=== PATIENT | male | born 1945 | race Caucasian/White ===

== ENCOUNTER 2016-06-30 10:08 | Outpatient (CLI) | payer MEDICARE, OTHER | END 2016-06-30 10:09 | disposition home or self-care (01) | DX: I48.91 Unspecified atrial fibrillation (principal) ==

== ENCOUNTER 2016-10-16 09:17 | Outpatient (CLI) | payer MEDICARE, OTHER ==
[2016-10-16 09:45] LABS: CREATININE 1.4 mg/dL (0.6-1.2); POTASSIUM 4.7 mmol/L (3.5-5.0)
== END 2016-10-16 09:18 | disposition home or self-care (01) ==
LOC: LAB 09:17
PROVIDERS: ATTEND Internal Medicine Cardiovascular Disease
DX: Z51.81 Encounter for therapeutic drug level monitoring (principal); Z79.899 Other long term (current) drug therapy
CPT/HCPCS: 36415; 80048

== ENCOUNTER 2016-12-05 07:29 | Outpatient (CLI) | payer MEDICARE, OTHER ==
[2016-12-05 13:56] LABS: BASOPHILS % (AUTO) 0.6 %; EOSINOPHILS # (AUTO) 0.1 10^3/uL (0.0-0.7); EOSINOPHILS % (AUTO) 2.8 %; HCT - HEMATOCRIT 41.6 % (42.0-52.0); HGB - HEMOGLOBIN 13.9 g/dL (14.0-18.0); LYMPHOCYTES # (AUTO) 1.3 10^3/uL (1.5-3.5); LYMPHOCYTES % (AUTO) 25.8 %; MEAN CORPUSCULAR HEMOGLOBIN 30.7 pg (27.0-31.0); MEAN CORPUSCULAR HGB CONC 33.3 g/dL (32.0-36.0); MEAN CORPUSCULAR VOLUME 91.9 fL (80.0-94.0); MEAN PLATELET VOLUME 8.3 fL (7.4-11.4); MONOCYTES # (AUTO) 0.4 10^3/uL (0.0-1.0); MONOCYTES % (AUTO) 8.4 %; NEUTROPHILS # (AUTO) 3.2 10^3/uL (1.5-6.6); NEUTROPHILS % (AUTO) 62.4 %; NUCLEATED RED BLOOD CELLS AUTO 0.1 /100WBC; RED BLOOD COUNT 4.52 10^6/uL (4.70-6.10); RED CELL DISTRIBUTION WIDTH 13.9 % (12.0-15.0); UNCORRECTED WHITE BLOOD COUNT 5.1 x10^3/uL; WHITE BLOOD COUNT 5.1 x10^3/uL (4.8-10.8)
[2016-12-05 14:30] LABS: ALBUMIN/GLOBULIN RATIO 1.4 (1.0-2.2); BILIRUBIN,TOTAL 0.6 mg/dL (0.2-1.0); BUN - BLOOD UREA NITROGEN 28 mg/dL (6-20); CARBON DIOXIDE - CO2 25 mmol/L (21-32); CHLORIDE 105 mmol/L (101-111); CHOL/HDL RATIO 3.2 (<5.0); CHOLESTEROL 158 mg/dL; CREATININE 1.2 mg/dL (0.6-1.2); GFR - MDRD 60 (>89); GLUCOSE 166 mg/dL (70-100); HDL CHOLESTEROL 50 mg/dL; LDL/HDL RATIO 1.7 (<3.6); POTASSIUM 4.5 mmol/L (3.5-5.0); SODIUM 138 mmol/L (135-145); TOTAL PROTEIN 6.4 g/dL (6.7-8.2); TRIGLYCERIDES 107 mg/dL; VLDL CHOLESTEROL 21 mg/dL
[2016-12-05 19:18] LABS: HEMOGLOBIN A1C 1.3 g/dL
== END 2016-12-05 07:30 | disposition home or self-care (01) ==
LOC: LAB.WCP 07:29
PROVIDERS: ATTEND Family Medicine
DX: I10 Essential (primary) hypertension (principal); E11.9 Type 2 diabetes mellitus without complications; Z12.5 Encounter for screening for malignant neoplasm of prostate
CPT/HCPCS: 36415; 80053; 80061; 82043; 83036; 85025; G0103; 84153

== ENCOUNTER 2016-12-26 14:09 | Outpatient (CLI) | payer MEDICARE, OTHER ==
[2016-12-26 14:50] LABS: CALCIUM 8.8 mg/dL (8.5-10.3); CREATININE 1.6 mg/dL (0.6-1.2); POTASSIUM 4.7 mmol/L (3.5-5.0)
== END 2016-12-26 14:10 | disposition home or self-care (01) ==
LOC: LAB 14:09
PROVIDERS: ATTEND Internal Medicine Cardiovascular Disease
DX: Z51.81 Encounter for therapeutic drug level monitoring (principal); Z79.899 Other long term (current) drug therapy
CPT/HCPCS: 36415; 80048

== ENCOUNTER 2017-04-24 14:38 | Outpatient (CLI) | payer MEDICARE, OTHER ==
[2017-04-24 12:57] LABS: HEMOGLOBIN A1C 1.14 g/dL
[2017-04-24 13:04] LABS: ALBUMIN/GLOBULIN RATIO 1.3 (1.0-2.2); BILIRUBIN,TOTAL 0.7 mg/dL (0.2-1.0); BUN - BLOOD UREA NITROGEN 24 mg/dL (6-20); CALCIUM 8.6 mg/dL (8.5-10.3); CARBON DIOXIDE - CO2 27 mmol/L (21-32); CHLORIDE 106 mmol/L (101-111); CHOL/HDL RATIO 3.4 (<5.0); CHOLESTEROL 168 mg/dL; CREATININE 1.2 mg/dL (0.6-1.2); GFR - MDRD 60 (>89); GLUCOSE 220 mg/dL (70-100); HDL CHOLESTEROL 49 mg/dL; POTASSIUM 4.3 mmol/L (3.5-5.0); SODIUM 136 mmol/L (135-145); TOTAL PROTEIN 6.3 g/dL (6.7-8.2); TRIGLYCERIDES 93 mg/dL; VLDL CHOLESTEROL 19 mg/dL
== END 2017-04-24 14:39 | disposition home or self-care (01) ==
LOC: LAB.WCP 14:38
PROVIDERS: ATTEND Family Medicine
DX: E78.5 Hyperlipidemia, unspecified (principal); E11.9 Type 2 diabetes mellitus without complications
CPT/HCPCS: 36415; 80053; 80061; 83036

== ENCOUNTER 2017-06-25 08:03 | Outpatient (CLI) | payer MEDICARE, OTHER ==
[2017-06-25 08:39] LABS: CALCIUM 9.1 mg/dL (8.5-10.3); CREATININE 1.2 mg/dL (0.6-1.2)
== END 2017-06-25 08:04 | disposition home or self-care (01) ==
LOC: LAB 08:03
PROVIDERS: ATTEND Internal Medicine Cardiovascular Disease
DX: Z51.81 Encounter for therapeutic drug level monitoring (principal); Z79.899 Other long term (current) drug therapy
CPT/HCPCS: 36415; 80048

== ENCOUNTER 2017-08-08 08:00 | Outpatient (CLI) | payer MEDICARE, OTHER ==
[2017-08-08 12:56] LABS: HB2 TOTAL 13.2 g/dL; HEMOGLOBIN A1C 1.02 g/dL; HEMOGLOBIN A1C % 9.2 % (4.6-6.2)
[2017-08-08 12:57] LABS: ALBUMIN 3.8 g/dL (3.2-5.5); ALBUMIN/GLOBULIN RATIO 1.5 (1.0-2.2); ALKALINE PHOSPHATASE 51 IU/L (42-121); ALT ALANINE AMINOTRANSFERASE 16 IU/L (10-60); AST ASPARTATE AMINOTRANSFERASE 15 IU/L (10-42); BILIRUBIN,TOTAL 0.8 mg/dL (0.2-1.0); BUN - BLOOD UREA NITROGEN 24 mg/dL (6-20); CALCIUM 8.7 mg/dL (8.5-10.3); CARBON DIOXIDE - CO2 24 mmol/L (21-32); CHLORIDE 105 mmol/L (101-111); CHOLESTEROL 143 mg/dL; CREATININE 1.2 mg/dL (0.6-1.2); GFR - MDRD 60 (>89); GLUCOSE 250 mg/dL (70-100); HDL CHOLESTEROL 47 mg/dL; LDL CHOLESTEROL,CALCULATED 78 mg/dL; LDL/HDL RATIO 1.7 (<3.6); SODIUM 137 mmol/L (135-145); TOTAL PROTEIN 6.3 g/dL (6.7-8.2); VLDL CHOLESTEROL 18 mg/dL
[2017-08-08 12:59] LABS: BASOPHILS % (AUTO) 0.4 %; EOSINOPHILS # (AUTO) 0.1 10^3/uL (0.0-0.7); EOSINOPHILS % (AUTO) 1.5 %; HGB - HEMOGLOBIN 12.8 g/dL (14.0-18.0); LYMPHOCYTES # (AUTO) 1.2 10^3/uL (1.5-3.5); MEAN CORPUSCULAR HGB CONC 34.2 g/dL (32.0-36.0); MEAN CORPUSCULAR VOLUME 90.6 fL (80.0-94.0); MEAN PLATELET VOLUME 8.6 fL (7.4-11.4); MONOCYTES # (AUTO) 0.5 10^3/uL (0.0-1.0); MONOCYTES % (AUTO) 9.3 %; NEUTROPHILS # (AUTO) 3.8 10^3/uL (1.5-6.6); NEUTROPHILS % (AUTO) 67.8 %; PLT - PLATELET COUNT 143 10^3/uL (130-450); RED BLOOD COUNT 4.14 10^6/uL (4.70-6.10); WHITE BLOOD COUNT 5.6 x10^3/uL (4.8-10.8)
== END 2017-08-08 08:01 | disposition home or self-care (01) ==
LOC: LAB.WCP 08:00
PROVIDERS: ATTEND Family Medicine
DX: I10 Essential (primary) hypertension (principal); E11.9 Type 2 diabetes mellitus without complications; E78.5 Hyperlipidemia, unspecified
CPT/HCPCS: 36415; 80053; 80061; 83036; 83721; 85025

== ENCOUNTER 2017-09-25 09:50 | Outpatient (CLI) | payer MEDICARE, OTHER ==
[2017-09-25 10:48] LABS: CALCIUM 8.9 mg/dL (8.5-10.3); CREATININE 1.2 mg/dL (0.6-1.2)
== END 2017-09-25 09:51 | disposition home or self-care (01) ==
LOC: LAB 09:50
PROVIDERS: ATTEND Internal Medicine Cardiovascular Disease
DX: Z51.81 Encounter for therapeutic drug level monitoring (principal); Z79.899 Other long term (current) drug therapy
CPT/HCPCS: 36415; 80048

== ENCOUNTER 2017-12-20 07:58 | Outpatient (CLI) | payer MEDICARE, OTHER ==
[2017-12-20 12:52] LABS: HB2 TOTAL 13.7 g/dL; HEMOGLOBIN A1C 0.73 g/dL
== END 2017-12-20 07:59 | disposition home or self-care (01) ==
LOC: LAB.WCP 07:58
PROVIDERS: ATTEND Family Medicine
DX: E11.9 Type 2 diabetes mellitus without complications (principal)
CPT/HCPCS: 36415; 83036

== ENCOUNTER 2017-12-25 10:00 | Outpatient (CLI) | payer MEDICARE, OTHER ==
[2017-12-25 10:27] LABS: CALCIUM 9.1 mg/dL (8.5-10.3); CREATININE 1.2 mg/dL (0.6-1.2)
== END 2017-12-25 10:01 | disposition home or self-care (01) ==
LOC: LAB 10:00
PROVIDERS: ATTEND Internal Medicine Cardiovascular Disease
DX: Z51.81 Encounter for therapeutic drug level monitoring (principal); Z79.899 Other long term (current) drug therapy
CPT/HCPCS: 36415; 80048

== ENCOUNTER 2018-03-26 07:03 | Outpatient (CLI) | payer MEDICARE, OTHER ==
[2018-03-26 13:02] LABS: BASOPHILS % (AUTO) 0.4 %; EOSINOPHILS # (AUTO) 0.1 10^3/uL (0.0-0.7); EOSINOPHILS % (AUTO) 1.5 %; HGB - HEMOGLOBIN 12.9 g/dL (14.0-18.0); LYMPHOCYTES # (AUTO) 1.2 10^3/uL (1.5-3.5); LYMPHOCYTES % (AUTO) 27.7 %; MEAN CORPUSCULAR HEMOGLOBIN 31.6 pg (27.0-31.0); MEAN CORPUSCULAR HGB CONC 34.5 g/dL (32.0-36.0); MEAN CORPUSCULAR VOLUME 91.4 fL (80.0-94.0); MEAN PLATELET VOLUME 8.1 fL (7.4-11.4); MONOCYTES # (AUTO) 0.4 10^3/uL (0.0-1.0); MONOCYTES % (AUTO) 9.3 %; NEUTROPHILS # (AUTO) 2.7 10^3/uL (1.5-6.6); NEUTROPHILS % (AUTO) 61.1 %; PLT - PLATELET COUNT 150 10^3/uL (130-450); RED BLOOD COUNT 4.09 10^6/uL (4.70-6.10); RED CELL DISTRIBUTION WIDTH 13.8 % (12.0-15.0); WHITE BLOOD COUNT 4.5 x10^3/uL (4.8-10.8)
[2018-03-26 13:09] LABS: ALBUMIN 3.6 g/dL (3.2-5.5); ALBUMIN/GLOBULIN RATIO 1.4 (1.0-2.2); ALKALINE PHOSPHATASE 60 IU/L (42-121); ALT ALANINE AMINOTRANSFERASE 22 IU/L (10-60); AST ASPARTATE AMINOTRANSFERASE 19 IU/L (10-42); BILIRUBIN,TOTAL 0.9 mg/dL (0.2-1.0); BUN - BLOOD UREA NITROGEN 15 mg/dL (6-20); CALCIUM 8.8 mg/dL (8.5-10.3); CARBON DIOXIDE - CO2 27 mmol/L (21-32); CHLORIDE 104 mmol/L (101-111); CHOL/HDL RATIO 2.7 (<5.0); CHOLESTEROL 130 mg/dL; GFR - MDRD 73 (>89); GLUCOSE 217 mg/dL (70-100); HDL CHOLESTEROL 48 mg/dL; LDL CHOLESTEROL,CALCULATED 57 mg/dL; LDL/HDL RATIO 1.2 (<3.6); SODIUM 139 mmol/L (135-145); TOTAL PROTEIN 6.2 g/dL (6.7-8.2); VLDL CHOLESTEROL 25 mg/dL
[2018-03-26 13:32] LABS: HB2 TOTAL 13.4 g/dL; HEMOGLOBIN A1C 1.07 g/dL; HEMOGLOBIN A1C % 9.5 % (4.6-6.2)
== END 2018-03-26 07:04 | disposition home or self-care (01) ==
LOC: LAB.WCP 07:03
PROVIDERS: ATTEND Family Medicine
DX: E11.9 Type 2 diabetes mellitus without complications (principal); Z12.5 Encounter for screening for malignant neoplasm of prostate; E78.5 Hyperlipidemia, unspecified; D64.9 Anemia, unspecified
CPT/HCPCS: 36415; 80053; 80061; 83036; 85025; G0103; 83721; 84153

== ENCOUNTER 2018-04-01 09:05 | Outpatient (CLI) | payer MEDICARE, OTHER ==
[2018-04-01 09:42] LABS: CALCIUM 8.8 mg/dL (8.5-10.3); CREATININE 1.1 mg/dL (0.6-1.2)
== END 2018-04-01 09:06 | disposition home or self-care (01) ==
LOC: LAB 09:05
PROVIDERS: ATTEND Internal Medicine Cardiovascular Disease
DX: Z51.81 Encounter for therapeutic drug level monitoring (principal); Z79.899 Other long term (current) drug therapy
CPT/HCPCS: 36415; 80048

== ENCOUNTER 2018-06-01 11:27 | Emergency (ER) | payer MEDICARE, OTHER ==
[2018-06-01 11:33] VITALS: BP 115/81
[2018-06-01] MEDS ORDERED: BENZONATATE 100 MG CAPSULE PO STA (12:10)
--- NOTE | 2018-06-01 12:12 | ED Physician Documentation ---
PD HPI URI - Stated complaint Stated Complaint: CONGESTION - Chief complaint Chief Complaint: Resp - History obtained from History obtained from: Patient, Family () - History of Present Illness Timing - onset: Yesterday (72-year-old gentleman with history of paroxysmal atrial fibrillation on Eliquis had a URI which was getting better and then got worse over the last day or 2 with nonproductive cough and feeling like there is junk in his chest. He denies fevers or shortness of breath.) Review of Systems Constitutional: reports: Fatigue. denies: Fever, Chills Throat: reports: Sore throat Cardiac: denies: Chest pain / pressure, Palpitations Respiratory: reports: Cough. denies: Dyspnea PD PAST MEDICAL HISTORY - Past Medical History Cardiovascular: Hypertension, High cholesterol, Atrial fibrillation Respiratory: None Endocrine/Autoimmune: Type 2 diabetes GI: GERD, Colon polyps :  HEENT: Chronic vision loss Psych: None Musculoskeletal: None Derm: Eczema - Past Surgical History Past Surgical History: Yes General: Colonoscopy Ortho: Other - Present Medications Home Medications: Ambulatory Orders Medication Instructions Recorded Confirmed Carvedilol [Coreg] 6.25 mg PO BID 11/04/12 02/04/15 Dofetilide [Tikosyn] 500 mcg PO BID 11/04/12 02/04/15 Glipizide [Glucotrol Xl] 10 mg PO BID 11/04/12 02/04/15 Lisinopril 40 mg PO DAILY 11/04/12 02/04/15 Metformin HCl [Glumetza] 1,000 mg PO BID 11/04/12 02/04/15 Pantoprazole Sodium [Protonix] 40 mg PO QDAC 11/04/12 02/04/15 amLODIPine [Norvasc] 10 mg PO DAILY 01/15/13 02/04/15 Lovastatin 40 mg PO DAILY 01/07/14 02/04/15 Potassium Chloride 20 meq PO DAILY 01/07/14 02/04/15 Aspirin [Aspir 81] 81 mg PO DAILY 03/13/14 02/04/15 Benzonatate [Tessalon Perle] 100 - 200 mg PO TID PRN #30 capsule 02/04/15 Doxycycline Hyclate [Vibramycin] 100 mg PO BID 10 Days capsule 02/04/15 Apixaban [Eliquis] 5 mg PO BID #60 tablet 04/12/16 Carvedilol [Coreg] 12.5 mg PO BID #60 tablet 04/12/16 Benzonatate [Tessalon Perle] 100 - 200 mg PO TID PRN #30 capsule 06/01/18 Doxycycline Hyclate 100 mg PO BID #20 capsule 06/01/18 - Allergies Allergies/Adverse Reactions: Allergies Allergy/AdvReac Type Severity Reaction Status Date / Time No Known Drug Allergies Allergy Verified 06/01/18 11:33 - Social History Does the pt smoke?: No Smoking Status: Never smoker Does the pt drink ETOH?: No Does the pt have substance abuse?: No - Immunizations Immunizations are current?: No - POLST Patient has POLST: No PD ED PE NORMAL - Vitals Vital signs reviewed: Yes - General General: Alert and oriented X 3, No acute distress (but frequent wet cough) - HEENT HEENT: Ears normal, Pharynx benign - Neck Neck: Supple, no meningeal sign, No bony TTP - Cardiac Cardiac: RRR, No murmur - Respiratory Respiratory: No respiratory distress, Other (diminished L base) - Abdomen Abdomen: Non tender - Extremities Extremities: No edema, No calf tenderness / cord - Neuro Neuro: Alert and oriented X 3, Normal speech Results - Vitals Vitals: Vital Signs - 24 hr 06/01/18 11:29 Temperature 36 C L Heart Rate 118 H Respiratory 18 Rate Blood Pressure 115/81 H O2 Saturation 97 Oxygen O2 Source Room air - Labs Labs: Laboratory Tests 06/01/18 06/01/18 12:18 12:18 WBC 4.6 L RBC 4.46 L Hgb 13.7 L Hct 41.1 L MCV 92.1 MCH 30.6 MCHC 33.2 RDW 13.6 Plt Count 177 MPV 7.9 Neut # (Auto) 3.0 Lymph # (Auto) 1.0 L [place] # (Auto) 0.5 Eos # (Auto) 0.1 Baso # (Auto) 0.0 Absolute Nucleated RBC 0.00 Nucleated RBC % 0.0 Sodium 137 Potassium 4.5 Chloride 102 Carbon Dioxide 24 Anion Gap 11.0 BUN 22 H Creatinine 1.3 H Estimated GFR (MDRD) 54 L Glucose 356 H Calcium 8.8 Total Bilirubin 0.5 AST 20 ALT 20 Alkaline Phosphatase 115 Total Protein 6.8 Albumin 3.6 Globulin 3.2 Albumin/Globulin Ratio 1.1 Lipase 42 PD MEDICAL DECISION MAKING - ED course ED course: 72-year-old gentleman presents with "double sickening" and clinical pneumonia at the left base without concomitant significant radiographic findings. Departure - Departure Disposition: 01 Home, Self Care Clinical Impression: Pneumonia Condition: Good Record reviewed to determine appropriate education?: Yes Instructions: Pneumonia Dc Prescriptions: Benzonatate [Tessalon Perle] 100 - 200 mg PO TID PRN #30 capsule PRN Reason: Cough Doxycycline Hyclate 100 mg PO BID #20 capsule Comments: Plenty of fluids. Return if worsening. Follow-up with your physician in 3-5 days for recheck.
[2018-06-01 12:24] LABS: BASOPHILS % (AUTO) 0.4 %; EOSINOPHILS # (AUTO) 0.1 10^3/uL (0.0-0.7); EOSINOPHILS % (AUTO) 2.6 %; HGB - HEMOGLOBIN 13.7 g/dL (14.0-18.0); MEAN CORPUSCULAR HEMOGLOBIN 30.6 pg (27.0-31.0); MEAN CORPUSCULAR HGB CONC 33.2 g/dL (32.0-36.0); MEAN CORPUSCULAR VOLUME 92.1 fL (80.0-94.0); MEAN PLATELET VOLUME 7.9 fL (7.4-11.4); MONOCYTES # (AUTO) 0.5 10^3/uL (0.0-1.0); MONOCYTES % (AUTO) 11.2 %; NEUTROPHILS % (AUTO) 64.8 %; PLT - PLATELET COUNT 177 10^3/uL (130-450); RED BLOOD COUNT 4.46 10^6/uL (4.70-6.10); RED CELL DISTRIBUTION WIDTH 13.6 % (12.0-15.0); WHITE BLOOD COUNT 4.6 x10^3/uL (4.8-10.8)
[2018-06-01 12:35] LABS: ALBUMIN 3.6 g/dL (3.2-5.5); ALBUMIN/GLOBULIN RATIO 1.1 (1.0-2.2); BILIRUBIN,TOTAL 0.5 mg/dL (0.2-1.0); CALCIUM 8.8 mg/dL (8.5-10.3); CREATININE 1.3 mg/dL (0.6-1.2); TOTAL PROTEIN 6.8 g/dL (6.7-8.2)
--- NOTE | 2018-06-01 13:26 | XRAY Report ---
Reason: cough, diminished breathL base Procedure Date: 06/01/2018 Accession Number: [id number] / [id number] Procedure: XR - Chest 2 View X-Ray CPT Code: 49896 FULL RESULT: EXAM: CHEST RADIOGRAPHY EXAM DATE: 06/01/2018 12:50 PM. CLINICAL HISTORY: Cough, diminished breath L base. COMPARISON: Chest radiograph 02/04/2015. Chest CT 02/11/2015. TECHNIQUE: 2 views. FINDINGS: Lungs/Pleura: No focal opacities evident. No pleural effusion. No pneumothorax. Normal volumes. Mediastinum: Heart and mediastinal contours are unremarkable. Other: Mild degenerative changes within the spine. Mild rightward curvature of the thoracic spine. IMPRESSION: No acute cardiopulmonary abnormality. RADIA
== END 2018-06-01 13:03 | disposition home or self-care (01) ==
LOC: ED 11:27
DX: J18.9 Pneumonia, unspecified organism (principal); I10 Essential (primary) hypertension; E78.00 Pure hypercholesterolemia, unspecified; E11.9 Type 2 diabetes mellitus without complications; I48.91 Unspecified atrial fibrillation; Z79.01 Long term (current) use of anticoagulants; Z79.82 Long term (current) use of aspirin
CPT/HCPCS: 36415; 71046; 80053; 83690; 85025; 99283; A9270

== ENCOUNTER 2018-07-01 14:48 | Outpatient (CLI) | payer MEDICARE, OTHER ==
[2018-07-01 17:43] LABS: CALCIUM 9.2 mg/dL (8.5-10.3); CREATININE 1.2 mg/dL (0.6-1.2)
== END 2018-07-01 14:49 | disposition home or self-care (01) ==
LOC: LAB 14:48
PROVIDERS: ATTEND Internal Medicine Cardiovascular Disease
DX: Z51.81 Encounter for therapeutic drug level monitoring (principal); Z79.899 Other long term (current) drug therapy
CPT/HCPCS: 36415; 80048

== ENCOUNTER 2018-08-14 08:27 | Outpatient (CLI) | payer MEDICARE, OTHER ==
[2018-08-14 13:29] LABS: BASOPHILS % (AUTO) 0.7 %; EOSINOPHILS # (AUTO) 0.1 10^3/uL (0.0-0.7); EOSINOPHILS % (AUTO) 1.6 %; HGB - HEMOGLOBIN 12.6 g/dL (14.0-18.0); LYMPHOCYTES # (AUTO) 1.1 10^3/uL (1.5-3.5); LYMPHOCYTES % (AUTO) 23.6 %; MEAN CORPUSCULAR HEMOGLOBIN 30.3 pg (27.0-31.0); MEAN CORPUSCULAR HGB CONC 33.6 g/dL (32.0-36.0); MEAN CORPUSCULAR VOLUME 90.3 fL (80.0-94.0); MEAN PLATELET VOLUME 8.3 fL (7.4-11.4); MONOCYTES # (AUTO) 0.5 10^3/uL (0.0-1.0); MONOCYTES % (AUTO) 10.2 %; NEUTROPHILS # (AUTO) 3.1 10^3/uL (1.5-6.6); NEUTROPHILS % (AUTO) 63.9 %; PLT - PLATELET COUNT 154 10^3/uL (130-450); RED BLOOD COUNT 4.14 10^6/uL (4.70-6.10); RED CELL DISTRIBUTION WIDTH 14.1 % (12.0-15.0); WHITE BLOOD COUNT 4.8 x10^3/uL (4.8-10.8)
[2018-08-14 13:45] LABS: HB2 TOTAL 13.4 g/dL
[2018-08-14 13:46] LABS: ALBUMIN 3.6 g/dL (3.2-5.5); ALBUMIN/GLOBULIN RATIO 1.3 (1.0-2.2); ALKALINE PHOSPHATASE 73 IU/L (42-121); ALT ALANINE AMINOTRANSFERASE 18 IU/L (10-60); AST ASPARTATE AMINOTRANSFERASE 18 IU/L (10-42); BUN - BLOOD UREA NITROGEN 19 mg/dL (6-20); CALCIUM 8.8 mg/dL (8.5-10.3); CARBON DIOXIDE - CO2 27 mmol/L (21-32); CHLORIDE 107 mmol/L (101-111); CHOL/HDL RATIO 2.9 (<5.0); CHOLESTEROL 141 mg/dL; CREATININE 1.1 mg/dL (0.6-1.2); GFR - MDRD 66 (>89); GLUCOSE 178 mg/dL (70-100); HDL CHOLESTEROL 48 mg/dL; LDL CHOLESTEROL,CALCULATED 80 mg/dL; LDL/HDL RATIO 1.7 (<3.6); SODIUM 141 mmol/L (135-145); TOTAL PROTEIN 6.3 g/dL (6.7-8.2); VLDL CHOLESTEROL 13 mg/dL
== END 2018-08-14 23:59 | disposition home or self-care (01) ==
LOC: LAB.WCP 08:27
PROVIDERS: ATTEND Family Medicine
DX: I10 Essential (primary) hypertension (principal); E78.5 Hyperlipidemia, unspecified; E11.9 Type 2 diabetes mellitus without complications
CPT/HCPCS: 36415; 80053; 80061; 82043; 83036; 83721; 85025

== ENCOUNTER 2018-10-11 08:44 | Outpatient (CLI) | payer MEDICARE, OTHER ==
[2018-10-11 09:11] LABS: CALCIUM 8.9 mg/dL (8.5-10.3); CREATININE 1.2 mg/dL (0.6-1.2)
== END 2018-10-11 08:45 | disposition home or self-care (01) ==
LOC: LAB 08:44
PROVIDERS: ATTEND Internal Medicine Cardiovascular Disease
DX: Z51.81 Encounter for therapeutic drug level monitoring (principal); Z79.899 Other long term (current) drug therapy
CPT/HCPCS: 36415; 80048

== ENCOUNTER 2019-01-24 14:31 | Outpatient (CLI) | payer MEDICARE, OTHER ==
[2019-01-24 14:59] LABS: CALCIUM 8.9 mg/dL (8.5-10.3); CREATININE 1.6 mg/dL (0.6-1.2)
== END 2019-01-24 14:32 | disposition home or self-care (01) ==
LOC: LAB 14:31
PROVIDERS: ATTEND Internal Medicine Cardiovascular Disease
DX: Z51.81 Encounter for therapeutic drug level monitoring (principal); Z79.899 Other long term (current) drug therapy
CPT/HCPCS: 36415; 80048

== ENCOUNTER 2019-02-06 09:21 | Outpatient (CLI) | payer MEDICARE, OTHER ==
[2019-02-06 09:42] LABS: CALCIUM 8.7 mg/dL (8.5-10.3); CREATININE 1.2 mg/dL (0.6-1.2)
== END 2019-02-06 09:22 | disposition home or self-care (01) ==
LOC: LAB 09:21
PROVIDERS: ATTEND Internal Medicine Cardiovascular Disease
DX: Z51.81 Encounter for therapeutic drug level monitoring (principal); Z79.899 Other long term (current) drug therapy
CPT/HCPCS: 36415; 80048

== ENCOUNTER 2019-03-03 08:00 | Outpatient (CLI) | payer MEDICARE, OTHER ==
[2019-03-03 12:49] LABS: CALCIUM 8.8 mg/dL (8.5-10.3); CREATININE 1.5 mg/dL (0.6-1.2)
[2019-03-03 13:25] LABS: HB2 TOTAL 13.2 g/dL; HEMOGLOBIN A1C 0.67 g/dL; HEMOGLOBIN A1C % 6.8 % (4.6-6.2)
== END 2019-03-03 23:59 | disposition home or self-care (01) ==
LOC: LAB.WCP 08:00
PROVIDERS: ATTEND Family Medicine
DX: E11.9 Type 2 diabetes mellitus without complications (principal)
CPT/HCPCS: 36415; 80048; 83036

== ENCOUNTER 2019-04-28 09:47 | Outpatient (CLI) | payer MEDICARE, OTHER ==
[2019-04-28 10:11] LABS: CALCIUM 9.2 mg/dL (8.5-10.3); CREATININE 1.3 mg/dL (0.6-1.2)
== END 2019-04-28 09:48 | disposition home or self-care (01) ==
LOC: LAB 09:47
PROVIDERS: ATTEND Internal Medicine Cardiovascular Disease
DX: Z51.81 Encounter for therapeutic drug level monitoring (principal); Z79.899 Other long term (current) drug therapy
CPT/HCPCS: 36415; 80048

== ENCOUNTER 2019-06-05 11:59 | Outpatient (CLI) | payer MEDICARE, OTHER ==
--- NOTE | 2019-06-05 15:22 | XRAY Report ---
Reason: COUGH Procedure Date: 06/05/2019 Accession Number: [id number] / [id number] Procedure: WCP - Chest 2 View X-Ray CPT Code: 07099 Addended Final Report FULL RESULT: EXAM: CHEST RADIOGRAPHY EXAM DATE: 06/05/2019 11:59 AM. CLINICAL HISTORY: Cough. COMPARISON: 06/01/2018. TECHNIQUE: 2 views. FINDINGS: Lungs/Pleura: Faint opacity in the right upper lobe, possible new pulmonary nodule. The lungs are otherwise stable. Mild bibasilar atelectasis present. Mediastinum: Heart and mediastinal contours are unremarkable. Other: Numerous left-sided chronic rib fractures again noted. Mild degenerative changes in the thoracic spine. IMPRESSION: Possible faint nodular opacity in the right upper lobe may represent overlapping structures. Consider thoracic CT for further evaluation. MAGDA The call report notification system was initiated by Dr. Shilpa Marcus at 03:14 PM on 06/05/2019. ADDENDUM: 06/05/19 15:24 The above call report findings were discussed with Delfino Jennings by Dr. Shilpa Marcus at 3:20 PM on 06/05/2019.
== END 2019-06-05 23:59 | disposition home or self-care (01) ==
LOC: DI.WCP 11:59
PROVIDERS: ATTEND Family Medicine
DX: R05 Cough (principal)
CPT/HCPCS: 71046

== ENCOUNTER 2019-06-07 12:24 | Emergency (ER) | payer MEDICARE, OTHER ==
--- NOTE | 2019-06-07 15:02 | XRAY Report ---
Reason: cough Procedure Date: 06/07/2019 Accession Number: [id number] / [id number] Procedure: XR - Chest 2 View X-Ray CPT Code: 69506 Final Report FULL RESULT: EXAM: CHEST RADIOGRAPHY EXAM DATE: 06/07/2019 02:34 PM. CLINICAL HISTORY: Cough. COMPARISON: CHEST 2 VIEW 06/05/2019 11:40 AM CHEST 2 VIEW 06/01/2018 12:45 PM CHEST W/ 02/11/2015 1:04 PM CHEST 2 VIEW PA/LAT 02/04/2015 6:13 AM. TECHNIQUE: 2 views. FINDINGS: Lungs/Pleura: No focal consolidation. Small nodular density in the right midlung is not significantly changed since 2014. No pleural effusion. No pneumothorax. Slightly low expansion. Mediastinum: Heart and mediastinal contours are normal. Other: Old left rib fractures. IMPRESSION: 1. No acute cardiopulmonary abnormality. 2. Unchanged right lung nodule since 2014. RADIA
[2019-06-07] MEDS ORDERED: ACETAMINOPHEN 325 MG TABLET PO STA (15:03)
[2019-06-07] MEDS ORDERED: CYCLOBENZAPRINE 10 MG TABLET PO STA (15:03)
--- NOTE | 2019-06-07 15:04 | ED Physician Documentation ---
History of Present Illness - Stated complaint Stated Complaint: COUGH/L SHOULDER PX - Chief complaint Chief Complaint: Resp - History obtained from History obtained from: Patient, Family - History of Present Illness Timing: How many weeks ago (2) Pain level max: 7 Pain level now: 5 - Additonal information Additional information: 73-year-old male with a cough for the past 2 weeks. He saw his doctor a few days ago and states that his x-ray was normal at that time. Feels like his cough is worsening. No fevers. He also states that his left shoulder has been hurting since he has been manually sanding drywall for the past week or so. Worse with movement and better with rest. Took 200 mg of Motrin without relief. No numbness or tingling. No trauma. Review of Systems Constitutional: denies: Fever, Chills Nose: reports: Rhinorrhea / runny nose, Congestion Cardiac: denies: Chest pain / pressure Respiratory: reports: Cough. denies: Dyspnea, Wheezing GI: denies: Nausea, Vomiting, Diarrhea Skin: denies: Rash Musculoskeletal: denies: Neck pain, Back pain Neurologic: denies: Headache PD PAST MEDICAL HISTORY - Past Medical History Cardiovascular: Hypertension, High cholesterol, Atrial fibrillation Respiratory: None Endocrine/Autoimmune: Type 2 diabetes GI: GERD, Colon polyps :  HEENT: Chronic vision loss Psych: None Musculoskeletal: None Derm: Eczema - Past Surgical History Past Surgical History: Yes General: Colonoscopy Ortho: Other - Present Medications Home Medications: Ambulatory Orders Medication Instructions Recorded Confirmed Carvedilol [Coreg] 6.25 mg PO BID 11/04/12 02/04/15 Dofetilide [Tikosyn] 500 mcg PO BID 11/04/12 02/04/15 Metformin HCl [Glumetza] 1,000 mg PO BID 11/04/12 02/04/15 Pantoprazole Sodium [Protonix] 40 mg PO QDAC 11/04/12 02/04/15 glipiZIDE [Glucotrol Xl] 10 mg PO BID 11/04/12 02/04/15 lisinopriL [Lisinopril] 40 mg PO DAILY 11/04/12 02/04/15 amLODIPine [Norvasc] 10 mg PO DAILY 01/15/13 02/04/15 Lovastatin 40 mg PO DAILY 01/07/14 02/04/15 Potassium Chloride 20 meq PO DAILY 01/07/14 02/04/15 Aspirin [Aspir 81] 81 mg PO DAILY 03/13/14 02/04/15 Benzonatate [Tessalon Perle] 100 - 200 mg PO TID PRN #30 capsule 02/04/15 Doxycycline Hyclate [Vibramycin] 100 mg PO BID 10 Days capsule 02/04/15 Apixaban [Eliquis] 5 mg PO BID #60 tablet 04/12/16 carvediloL [Coreg] 12.5 mg PO BID #60 tablet 04/12/16 Benzonatate [Tessalon Perle] 100 - 200 mg PO TID PRN #30 capsule 06/01/18 Doxycycline Hyclate 100 mg PO BID #20 capsule 06/01/18 Cyclobenzaprine [Flexeril] 10 mg PO TID PRN #20 tablet 06/07/19 - Allergies Allergies/Adverse Reactions: Allergies Allergy/AdvReac Type Severity Reaction Status Date / Time No Known Drug Allergies Allergy Verified 06/07/19 12:44 - Social History Does the pt smoke?: No Smoking Status: Never smoker Does the pt drink ETOH?: No Does the pt have substance abuse?: No - Immunizations Immunizations are current?: No - POLST Patient has POLST: No PD ED PE NORMAL - Vitals Vital signs reviewed: Yes - General General: Alert and oriented X 3, No acute distress - HEENT HEENT: Moist mucous membranes - Neck Neck: Supple, no meningeal sign - Cardiac Cardiac: RRR - Respiratory Respiratory: No respiratory distress, Clear bilaterally - Abdomen Abdomen: Soft, Non tender, Non distended - Derm Derm: Warm and dry - Extremities Extremities: No deformity, No tenderness to palpate, Other (Pain with range of motion of the left shoulder. No tenderness. No swelling.) - Neuro Neuro: Alert and oriented X 3 Results - Vitals Vitals: Vital Signs - 24 hr 06/07/19 06/07/19 06/07/19 12:40 12:44 15:43 Temperature 36.8 C 36.8 C Heart Rate 97 97 82 Respiratory 20 20 14 Rate Blood Pressure 141/75 H 141/75 H 139/73 H O2 Saturation 99 99 97 Oxygen O2 Source Room air - Rads (name of study) cxr Radiology: Prelim report reviewed, EMP read contemporaneously, See rad report ( No acute cardiopulmonary abnormality. 2. Unchanged right lung nodule since 2015. ) PD MEDICAL DECISION MAKING - ED course Complexity details: reviewed results, re-evaluated patient, considered differential, d/w patient, d/w family ED course: Patient appears to have a muscular strain of the left shoulder, likely from manually sanding drywall. Will trial on muscle relaxants and Tylenol for this as he does take Eliquis. Patient also appears to have a viral upper respiratory infection. We will continue supportive care for this. No evidence of pneumonia. No indication for antibiotics at this time. Patient and family counseled regarding signs and symptoms for which I believe and urgent re- evaluation would be necessary. Patient with good understanding of and agreement to plan and is comfortable going home at this time This document was made in part using voice recognition software. While efforts are made to proofread this document, sound alike and grammatical errors may occur. Departure - Departure Disposition: 01 Home, Self Care Clinical Impression: Viral URI Left shoulder strain Qualifiers: Encounter type: initial encounter Qualified Code(s): S46.912A - Strain of unspecified muscle, fascia and tendon at shoulder and upper arm level, left arm, initial encounter Condition: Good Instructions: ED Sprain Shoulder, ED URI Viral Follow-Up: Joanie Davis PA [Primary Care Provider] - Within 1 week Prescriptions: Cyclobenzaprine [Flexeril] 10 mg PO TID PRN #20 tablet PRN Reason: Spasms Comments: Return if you worsen. Follow up with your doctor for further care. do not drive or operate heavy machinery while taking the flexeril. Discharge Date/Time: 06/07/19 15:44
[2019-06-07 15:44] VITALS: BP 139/73
== END 2019-06-07 15:44 | disposition home or self-care (01) ==
LOC: ED 12:24
DX: J06.9 Acute upper respiratory infection, unspecified (principal); S46.912A Strain of unspecified muscle, fascia and tendon at shoulder and upper arm level, left arm, initial encounter; X50.9XXA Other and unspecified overexertion or strenuous movements or postures, initial encounter; Y93.89 Activity, other specified; R91.1 Solitary pulmonary nodule; I10 Essential (primary) hypertension; E11.9 Type 2 diabetes mellitus without complications; Z79.84 Long term (current) use of oral hypoglycemic drugs; I48.91 Unspecified atrial fibrillation; Z79.01 Long term (current) use of anticoagulants; Z79.82 Long term (current) use of aspirin
CPT/HCPCS: 71046; 99283; 99284; A9270

== ENCOUNTER 2019-06-16 10:01 | Emergency (ER) | payer MEDICARE, OTHER ==
[2019-06-16 10:11] VITALS: BP 113/82
--- NOTE | 2019-06-16 12:20 | ED Physician Documentation ---
History of Present Illness - Stated complaint Stated Complaint: LT SHOULDER PX - Chief complaint Chief Complaint: Ext Problem - History obtained from History obtained from: Patient - History of Present Illness Timing: How many weeks ago (1) Pain level now: 7 - Additonal information Additional information: This is a 73-year-old man who presents with complaints that he was seen a week ago for left shoulder pain prescribed Flexeril and Tylenol and is not getting any better. The pain is in the deltoid region but is also radiating into the left upper chest and down into the upper arm little bit. He describes the pain is "tolerable" if he can get the arm in a certain position but he is rating it at a 7 out of 10 now. He took Tylenol around 6 AM he does not know if it helped much or not. The pain also seems to be pulling down into his left lower back. He denies any chest pain. He did check his heart rate yesterday it was 119 but he has a history of A. fib is on rate control Tikosyn and also takes Eliquis. His blood pressure was 140/70. He denies shortness of breath, pleurisy, nausea or diaphoresis. The patient did have a unusual activity prior to the onset of this pain where he was up on a ladder sanding down mud on a drywall using both the right and left arms. He says he is pretty active with his right arm normal ly because he is right-handed but does not use the left in that capacity frequently. Review of Systems Constitutional: denies: Sweats Cardiac: reports: Palpitations. denies: Chest pain / pressure Respiratory: denies: Dyspnea GI: denies: Nausea Skin: denies: Rash Musculoskeletal: reports: Back pain, Extremity pain, Joint pain Neurologic: denies: Generalized weakness, Numbness, Syncope PD PAST MEDICAL HISTORY - Past Medical History Past Medical History: Yes Cardiovascular: Hypertension, High cholesterol, Atrial fibrillation Respiratory: None Endocrine/Autoimmune: Type 2 diabetes GI: GERD, Colon polyps :  HEENT: Chronic vision loss Psych: None Musculoskeletal: None Derm: Eczema - Past Surgical History Past Surgical History: Yes General: Colonoscopy Ortho: Other - Present Medications Home Medications: Ambulatory Orders Medication Instructions Recorded Confirmed Carvedilol [Coreg] 6.25 mg PO BID 11/04/12 02/04/15 Dofetilide [Tikosyn] 500 mcg PO BID 11/04/12 02/04/15 Metformin HCl [Glumetza] 1,000 mg PO BID 11/04/12 02/04/15 Pantoprazole Sodium [Protonix] 40 mg PO QDAC 11/04/12 02/04/15 glipiZIDE [Glucotrol Xl] 10 mg PO BID 11/04/12 02/04/15 lisinopriL [Lisinopril] 40 mg PO DAILY 11/04/12 02/04/15 amLODIPine [Norvasc] 10 mg PO DAILY 01/15/13 02/04/15 Lovastatin 40 mg PO DAILY 01/07/14 02/04/15 Potassium Chloride 20 meq PO DAILY 01/07/14 02/04/15 Aspirin [Aspir 81] 81 mg PO DAILY 03/13/14 02/04/15 Benzonatate [Tessalon Perle] 100 - 200 mg PO TID PRN #30 capsule 02/04/15 Doxycycline Hyclate [Vibramycin] 100 mg PO BID 10 Days capsule 02/04/15 Apixaban [Eliquis] 5 mg PO BID #60 tablet 04/12/16 carvediloL [Coreg] 12.5 mg PO BID #60 tablet 04/12/16 Benzonatate [Tessalon Perle] 100 - 200 mg PO TID PRN #30 capsule 06/01/18 Doxycycline Hyclate 100 mg PO BID #20 capsule 06/01/18 Cyclobenzaprine [Flexeril] 10 mg PO TID PRN #20 tablet 06/07/19 Hydrocodone/Acetaminophen 1 - 2 each PO Q6H PRN #14 tablet 06/16/19 [Hydrocodon-Acetaminophen 5-325] - Allergies Allergies/Adverse Reactions: Allergies Allergy/AdvReac Type Severity Reaction Status Date / Time No Known Drug Allergies Allergy Verified 06/07/19 12:44 - Social History Does the pt smoke?: No Smoking Status: Never smoker Does the pt drink ETOH?: No Does the pt have substance abuse?: No - Immunizations Immunizations are current?: No - POLST Patient has POLST: No PD ED PE NORMAL - Vitals Vital signs reviewed: Yes - General General: Alert and oriented X 3, No acute distress, Well developed/nourished - HEENT HEENT: Atraumatic, PERRL, Moist mucous membranes - Neck Neck: Supple, no meningeal sign, No adenopathy, No bruit - Cardiac Cardiac: No murmur, Strong equal pulses, Other (Irregular rhythm rate was 100.) - Respiratory Respiratory: No respiratory distress, Clear bilaterally - Derm Derm: Normal color, Warm and dry, No rash - Extremities Extremities: No deformity, Other (The left shoulder has pain with extension and abduction. There is tenderness over the proximal deltoid tendon but also over the greater epicondyle. Sensation is intact to light touch through the arm including over the deltoid. He has pain with supination at the elbow but strength is 5 out of 5. 5 out of 5 wrist extension and flexion, finger abduction and heating systems installer strength. Sensations intact light touch she has a 2+ radial pulse. No swelling or erythema.). 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 He has not gotten relief with Flexeril. He does have some degenerative generative changes around the AC joint left shoulder no definite bone spur. He had some mild tachycardia yesterday but he has a history of A. fib. This does not in any way appear to be cardiac pain. He is not a candidate to take anti-inflammatories because of his Eliquis. I recommended that he ice the shoulder, make sure that he is not doing any repetitive movements or things that exacerbate the pain. He is provided a prescription for hydrocodone and encouraged to follow-up with his primary care provider for further management and possible MRI of the shoulder if it is not improving. He states understanding. Departure - Departure Disposition: 01 Home, Self Care Clinical Impression: Tendinopathy of left shoulder Condition: Good Instructions: ED Tendinitis Rotator Cuff Follow-Up: Joanie Davis PA [Primary Care Provider] - Prescriptions: Hydrocodone/Acetaminophen [Hydrocodon-Acetaminophen 5-325] 1 - 2 each PO Q6H PRN #14 tablet PRN Reason: pain Comments: Stop the Flexeril. Stop using the heating pad. Apply ice to the shoulder and limit the activity that you are not doing repetitive movement with it. Take the hydrocodone if needed for pain but do not drive or operate machinery and do not take additional Tylenol with it. Follow-up with your primary care provider for reevaluation and consideration of MRI scanning. Discharge Date/Time: 06/16/19 12:37
--- NOTE | 2019-06-16 12:30 | XRAY Report ---
Reason: pain Procedure Date: 06/16/2019 Accession Number: [id number] / [id number] Procedure: XR - Shoulder 3 View LT CPT Code: Final Report FULL RESULT: EXAM: LEFT SHOULDER RADIOGRAPHY EXAM DATE: 06/16/2019 11:54 AM. CLINICAL HISTORY: Shoulder pain COMPARISON: None. TECHNIQUE: 3 views. FINDINGS: Bones: No acute fracture. There are remote left posterior lateral rib fractures. Joints: No evidence of dislocation. Glenohumeral joint spacing is maintained. There is mild acromioclavicular joint degenerative disease. Soft tissues: The visualized hemithorax is unremarkable. No soft tissue swelling. IMPRESSION: 1. No evidence of fracture or dislocation. 2. Glenohumeral joint spacing is maintained. 3. There is mild acromioclavicular joint degenerative disease. RADIA
== END 2019-06-16 12:37 | disposition home or self-care (01) ==
LOC: ED 10:01
DX: M75.92 Shoulder lesion, unspecified, left shoulder (principal); M19.012 Primary osteoarthritis, left shoulder; M54.5 Low back pain; I48.91 Unspecified atrial fibrillation; Z79.01 Long term (current) use of anticoagulants; Z79.82 Long term (current) use of aspirin; I10 Essential (primary) hypertension; E11.9 Type 2 diabetes mellitus without complications; Z79.84 Long term (current) use of oral hypoglycemic drugs
CPT/HCPCS: 99283; 99284

== ENCOUNTER 2019-07-29 15:52 | Outpatient (CLI) | payer MEDICARE, OTHER ==
[2019-07-29 16:19] LABS: CALCIUM 9.2 mg/dL (8.5-10.3); CREATININE 1.6 mg/dL (0.6-1.2)
== END 2019-07-29 15:53 | disposition home or self-care (01) ==
LOC: LAB 15:52
PROVIDERS: ATTEND Internal Medicine Cardiovascular Disease
DX: Z51.81 Encounter for therapeutic drug level monitoring (principal); Z79.899 Other long term (current) drug therapy
CPT/HCPCS: 36415; 80048

== ENCOUNTER 2019-10-24 10:32 | Outpatient (CLI) | payer MEDICARE, OTHER ==
[2019-10-24 10:50] LABS: HGB - HEMOGLOBIN 12.9 g/dL (14.0-18.0); MEAN CORPUSCULAR HEMOGLOBIN 30.4 pg (27.0-31.0); MEAN CORPUSCULAR HGB CONC 32.4 g/dL (32.0-36.0); MEAN CORPUSCULAR VOLUME 93.6 fL (80.0-94.0); MEAN PLATELET VOLUME 9.3 fL (7.4-11.4); RED BLOOD COUNT 4.25 10^6/uL (4.70-6.10); RED CELL DISTRIBUTION WIDTH 13.1 % (12.0-15.0); WHITE BLOOD COUNT 6.5 x10^3/uL (4.8-10.8)
[2019-10-24 11:00] LABS: CALCIUM 8.8 mg/dL (8.5-10.3); CREATININE 1.9 mg/dL (0.6-1.2)
[2019-10-24 17:59] LABS: CREATININE,URINE 188.1 mg/dL; PROTEIN/CREATININE RATIO,URINE 0.1 (<=0.2)
== END 2019-10-24 10:33 | disposition home or self-care (01) ==
LOC: LAB 10:32
PROVIDERS: ATTEND Internal Medicine Nephrology
DX: D70.9 Neutropenia, unspecified (principal); D63.1 Anemia in chronic kidney disease; N05.9 Unspecified nephritic syndrome with unspecified morphologic changes; R80.9 Proteinuria, unspecified; Z51.81 Encounter for therapeutic drug level monitoring; Z79.899 Other long term (current) drug therapy
CPT/HCPCS: 36415; 80048; 82570; 84156; 85027

== ENCOUNTER 2019-11-08 07:21 | Outpatient (CLI) | payer MEDICARE, OTHER ==
--- NOTE | 2019-11-08 09:02 | Ultrasound Report ---
PROCEDURE: Retroperitoneal INDICATIONS: BLADDER OBSTRUCTION TECHNIQUE: Real-time scanning was performed of the kidneys and bladder, with image documentation. COMPARISON: None available. FINDINGS: Kidneys are normal in size. Right kidney measures 10.5 cm long; left kidney measures 10.8 cm long. Right renal cortical thickness is 1.2 cm; left renal cortical thickness is 1.1 cm. No solid masses, hydronephrosis, or nephrolithiasis. Simple appearing bilateral renal cysts are seen, with a 6 mm cys t seen on the right superiorly and a 1.3 cm mid left kidney cyst seen. There is a small amount of bisi arent fluid seen along the inferior aspect of the left kidney. The prevoid bladder volume is 69 cc. The post void bladder volume is 47 cc. Bilateral ureteral jets c an be seen. The prostate measures 3.2 x 2.8 x 4.5 cm. IMPRESSION: Negative for hydronephrosis. Moderate post void residual, 47 cc. A small amount of apparent fluid can be seen along the inferior aspect of the left kidney. Reviewed by: Angelito Piper MD on 11/08/2019 8:01 AM [facility] Approved by: Angelito Piper MD on 11/08/2019 8:01 AM J[facility] Station ID: [id number]
== END 2019-11-08 07:22 | disposition home or self-care (01) ==
LOC: DI 07:21
PROVIDERS: ATTEND Physician Assistant
DX: N32.0 Bladder-neck obstruction (principal); N17.9 Acute kidney failure, unspecified
CPT/HCPCS: 76770

== ENCOUNTER 2020-05-26 08:41 | Outpatient (CLI) | payer MEDICARE, OTHER ==
[2020-05-26 09:02] LABS: CALCIUM 8.9 mg/dL (8.5-10.3); CREATININE 1.5 mg/dL (0.6-1.2)
== END 2020-05-26 08:42 | disposition home or self-care (01) ==
LOC: LAB 08:41
PROVIDERS: ATTEND Internal Medicine Cardiovascular Disease
DX: Z51.81 Encounter for therapeutic drug level monitoring (principal); Z79.899 Other long term (current) drug therapy
CPT/HCPCS: 36415; 80048

== ENCOUNTER 2021-05-06 11:01 | Outpatient (CLI) | payer MEDICARE, OTHER ==
--- NOTE | 2021-05-06 13:58 | XRAY Report ---
PROCEDURE: Cervical Spine 2 View INDICATIONS: NECK PX TECHNIQUE: 3 view(s) of the cervical spine were acquired. COMPARISON: None. FINDINGS: Bones: No fractures or dislocations to the C7-T1 level. The lateral masses of C1 appear intact on t he odontoid view. No suspicious bony lesions. There is trace anterolisthesis of C2 on C3. Moderate to severe multilevel disc space narrowing is present from C3-4 through C6-7 most severe at C6-7. Mult ilevel anterior osteophytes and uncovertebral hypertrophy are present. Soft tissues: No prevertebral soft tissue swelling. IMPRESSION: Multilevel degenerative changes as above. As clinically indicated, MRI may be obtained f or additional evaluation. Reviewed by: Lynette Hamilton MD on 05/06/2021 1:57 PM [facility] Approved by: Lynette Hamilton MD on 05/06/2021 1:57 PM [facility] Station ID: [id number]
== END 2021-05-06 11:02 | disposition home or self-care (01) ==
LOC: DI.N 11:01
PROVIDERS: ATTEND Family Medicine
DX: M47.812 Spondylosis without myelopathy or radiculopathy, cervical region (principal); M43.12 Spondylolisthesis, cervical region

== ENCOUNTER 2021-12-05 10:34 | Outpatient (CLI) | payer MEDICARE, OTHER ==
[2021-12-05 10:55] LABS: CALCIUM 8.9 mg/dL (8.5-10.3); CREATININE 1.4 mg/dL (0.6-1.2); POTASSIUM 4.3 mmol/L (3.5-5.0)
== END 2021-12-05 10:35 | disposition home or self-care (01) ==
LOC: LAB 10:34
PROVIDERS: ATTEND Student in an Organized Health Care Education/Training Program
DX: I48.0 Paroxysmal atrial fibrillation (principal); Z51.81 Encounter for therapeutic drug level monitoring; Z79.899 Other long term (current) drug therapy
CPT/HCPCS: 36415; 80048

== ENCOUNTER 2022-06-14 07:36 | Outpatient (CLI) | payer MEDICARE, OTHER ==
[2022-06-14 13:14] LABS: CALCIUM 8.5 mg/dL (8.5-10.3); CREATININE 1.4 mg/dL (0.6-1.2); MAGNESIUM 1.9 mg/dL (1.7-2.8); POTASSIUM 4.3 mmol/L (3.5-5.0)
== END 2022-06-14 07:37 | disposition home or self-care (01) ==
LOC: LAB.N 07:36
PROVIDERS: ATTEND Nurse Practitioner Family
DX: Z51.81 Encounter for therapeutic drug level monitoring (principal); Z79.899 Other long term (current) drug therapy
CPT/HCPCS: 36415; 80048; 83735

== ENCOUNTER 2022-06-28 07:24 | Outpatient (CLI) | payer MEDICARE, OTHER ==
[2022-06-28 12:01] LABS: BASOPHILS % (AUTO) 0.2 %; CREATININE,URINE 97.7 mg/dL; EOSINOPHILS # (AUTO) 0.1 10^3/uL (0.0-0.7); EOSINOPHILS % (AUTO) 1.8 %; HCT - HEMATOCRIT 39.3 % (42.0-52.0); HGB - HEMOGLOBIN 12.5 g/dL (14.0-18.0); LYMPHOCYTES # (AUTO) 1.2 10^3/uL (1.5-3.5); LYMPHOCYTES % (AUTO) 24.9 %; MEAN CORPUSCULAR HEMOGLOBIN 29.6 pg (27.0-31.0); MEAN CORPUSCULAR HGB CONC 31.8 g/dL (32.0-36.0); MEAN CORPUSCULAR VOLUME 93.1 fL (80.0-94.0); MEAN PLATELET VOLUME 10.2 fL (7.4-11.4); MICROALBUM/CREATININE RATIO,UR 7.2 ug/mg (<30.0); MICROALBUMIN,URINE 0.7 mg/dL (0-300.0); MONOCYTES # (AUTO) 0.4 10^3/uL (0.0-1.0); MONOCYTES % (AUTO) 8.9 %; NEUTROPHILS # (AUTO) 3.2 10^3/uL (1.5-6.6); PLT - PLATELET COUNT 173 10^3/uL (130-450); RED BLOOD COUNT 4.22 10^6/uL (4.70-6.10); RED CELL DISTRIBUTION WIDTH 13.6 % (12.0-15.0); WHITE BLOOD COUNT 4.9 x10^3/uL (4.8-10.8)
[2022-06-28 12:19] LABS: ALBUMIN 3.3 g/dL (3.2-5.5); ALKALINE PHOSPHATASE 67 IU/L (42-121); ALT ALANINE AMINOTRANSFERASE 22 IU/L (10-60); AST ASPARTATE AMINOTRANSFERASE 17 IU/L (10-42); BILIRUBIN,TOTAL 0.8 mg/dL (0.2-1.0); BUN - BLOOD UREA NITROGEN 17 mg/dL (6-20); CARBON DIOXIDE - CO2 27 mmol/L (21-32); CHLORIDE 104 mmol/L (101-111); CHOL/HDL RATIO 2.7 (<5.0); CHOLESTEROL 130 mg/dL; CREATININE 1.1 mg/dL (0.6-1.2); GFR - MDRD 65 (>89); GLUCOSE 185 mg/dL (70-100); HDL CHOLESTEROL 48 mg/dL; LDL CHOLESTEROL,CALCULATED 62 mg/dL; LDL/HDL RATIO 1.3 (<3.6); POTASSIUM 4.3 mmol/L (3.5-5.0); SODIUM 139 mmol/L (135-145); TOTAL PROTEIN 6.5 g/dL (6.7-8.2); TRIGLYCERIDES 99 mg/dL; VLDL CHOLESTEROL 20 mg/dL
[2022-06-28 12:30] LABS: THYROID STIMULATING HORMONE 1.76 uIU/mL (0.34-5.60)
[2022-06-28 12:33] LABS: ESTIMATED AVERAGE GLUCOSE 240 mg/dL (70-100)
== END 2022-06-28 07:25 | disposition home or self-care (01) ==
LOC: LAB.N 07:24
PROVIDERS: ATTEND Family Medicine
DX: G47.33 Obstructive sleep apnea (adult) (pediatric) (principal); I51.3 Intracardiac thrombosis, not elsewhere classified; E11.22 Type 2 diabetes mellitus with diabetic chronic kidney disease; N18.31 Chronic kidney disease, stage 3a; E11.65 Type 2 diabetes mellitus with hyperglycemia; K21.9 Gastro-esophageal reflux disease without esophagitis; I48.0 Paroxysmal atrial fibrillation
CPT/HCPCS: 36415; 80053; 80061; 82043; 82570; 83036; 83721; 84443; 85025

== ENCOUNTER 2022-07-10 08:46 | Outpatient (CLI) | payer MEDICARE, OTHER ==
[2022-07-10 13:39] LABS: CALCIUM 8.9 mg/dL (8.5-10.3); CREATININE 1.2 mg/dL (0.6-1.2); POTASSIUM 4.2 mmol/L (3.5-5.0)
== END 2022-07-10 08:47 | disposition home or self-care (01) ==
LOC: LAB.N 08:46
PROVIDERS: ATTEND Nurse Practitioner Family
DX: N28.9 Disorder of kidney and ureter, unspecified (principal)
CPT/HCPCS: 36415; 80048

== ENCOUNTER 2023-01-30 12:14 | Outpatient (CLI) | payer MEDICARE, OTHER ==
[2023-01-30 18:14] LABS: CALCIUM 9.1 mg/dL (8.5-10.3); CREATININE 1.2 mg/dL (0.6-1.3); POTASSIUM 4.6 mmol/L (3.5-4.5)
== END 2023-01-30 12:15 | disposition home or self-care (01) ==
LOC: LAB.N 12:14
PROVIDERS: ATTEND Family Medicine
DX: Z51.81 Encounter for therapeutic drug level monitoring (principal)
CPT/HCPCS: 36415; 80048

== ENCOUNTER 2023-04-09 07:18 | Outpatient (CLI) | payer MEDICARE, OTHER ==
[2023-04-09 13:00] LABS: CALCIUM 8.9 mg/dL (8.5-10.3); CREATININE 1.2 mg/dL (0.6-1.3); POTASSIUM 4.8 mmol/L (3.5-4.5)
[2023-04-09 13:39] LABS: ESTIMATED AVERAGE GLUCOSE 212 mg/dL (70-100)
== END 2023-04-09 07:19 | disposition home or self-care (01) ==
LOC: LAB.N 07:18
PROVIDERS: ATTEND Family Medicine
DX: E11.65 Type 2 diabetes mellitus with hyperglycemia (principal)
CPT/HCPCS: 36415; 80048; 83036

== ENCOUNTER 2023-04-28 17:14 | Emergency (ER) | payer MEDICARE, OTHER ==
[2023-04-28 17:26] VITALS: BP 140/76
[2023-04-28] MEDS ORDERED: BENZONATATE 100 MG CAPSULE PO STA (19:58)
--- NOTE | 2023-04-28 20:18 | XRAY Report ---
PROCEDURE: Chest 1 View X-Ray INDICATIONS: cough TECHNIQUE: One view of the chest was acquired. COMPARISON: 06/07/2019, 06/05/2019 FINDINGS: Surgical changes and devices: None. Lungs and pleura: No pleural effusions or pneumothorax. Lungs are clear. Mediastinum: Mediastinal contours appear normal. Heart size is normal. Bones and chest wall: No suspicious bony lesions. Overlying soft tissues appear unremarkable. Aga in noted, healed fracture deformities of the posterior lateral left ribs. IMPRESSION: No acute cardiopulmonary process. No focal consolidation seen. Reviewed by: Dom Jenkins MD on 04/28/2023 8:17 PM [facility] Approved by: Dom Jenkins MD on 04/28/2023 8:17 PM PST Station ID: [id number]
[2023-04-28 20:20] LABS: B. PARAPERTUSSIS- RESP PCR PAN NOT DETECTED; B. PERTUSSIS- RESP PCR PANEL NOT DETECTED; C. PNEUMONIAE- RESP PCR PANEL NOT DETECTED; CORONAVIRUS 229E-RESP PCR NOT DETECTED; CORONAVIRUS HKU1-RESP PCR NOT DETECTED; CORONAVIRUS NL63-RESP PCR NOT DETECTED; CORONAVIRUS OC43-RESP PCR NOT DETECTED; HUMAN METAPNEUMOVIRUS NOT DETECTED; INFLUENZA A- RESP PCR PANEL NOT DETECTED; INFLUENZA B - RESP PCR PANEL NOT DETECTED; M. PNEUMONIAE- RESP PCR PANEL NOT DETECTED; PARAINFLUENZA VIRUS 1 NOT DETECTED; PARAINFLUENZA VIRUS 2 NOT DETECTED; PARAINFLUENZA VIRUS 3 NOT DETECTED; PARAINFLUENZA VIRUS 4 NOT DETECTED; RHINOVIRUS/ENTEROVIRUS NOT DETECTED; RSV- RESP PCR PANEL DETECTED; SARS-CoV-2 -RESP PCR PANEL NOT DETECTED
[2023-04-28 20:35] VITALS: O2SAT 99
--- NOTE | 2023-04-28 20:49 | ED Physician Documentation ---
PD HPI URI - Stated complaint Stated Complaint: COUGH - Chief complaint Chief Complaint: Resp - History obtained from History obtained from: Patient - Additional information Additional information: Patient is a 77-year-old male with a history of A-fib on warfarin presenting for evaluation of a productive cough for 4 days.Patient states that his Cough has production of white phlegm. He denies chest pain or shortness of air. He has had associated nasal congestion and runny nose. Denies fever. He has tried [id number] cough medications without improvement. Patient states he is concerned as he does not like his cough when he is around other people as a back away from him. He is supposed to go to [facility] tomorrow morning. He has not taken a COVID test because he has not had a fever. He reports normal appetite. No vomiting or diarrhea. No leg swelling or pain. Reports he regularly has his INR checked. Review of Systems Constitutional: denies: Fever Nose: reports: Rhinorrhea / runny nose Cardiac: denies: Chest pain / pressure Respiratory: reports: Cough. denies: Dyspnea GI: denies: Abdominal Pain, Vomiting Musculoskeletal: denies: Extremity swelling PD PAST MEDICAL HISTORY - Past Medical History Past Medical History: Yes Cardiovascular: Hypertension, High cholesterol, Atrial fibrillation Respiratory: None Neuro: None Endocrine/Autoimmune: Type 2 diabetes GI: GERD, Colon polyps :  HEENT: Chronic vision loss Psych: None Musculoskeletal: None Derm: Eczema - Past Surgical History Past Surgical History: Yes General: Colonoscopy Ortho: Other - Present Medications Home Medications: Ambulatory Orders Medication Instructions Recorded Confirmed Metformin HCl [Glumetza] 1,000 mg PO BID 11/04/12 04/28/23 Pantoprazole Sodium [Protonix] 40 mg PO QDAC 11/04/12 04/28/23 carvediloL [Coreg] 6.25 mg PO BID 11/04/12 04/28/23 Lovastatin 40 mg PO DAILY 01/07/14 04/28/23 Amlodipine Besylate/Valsartan 0.5 tab PO DAILY 04/28/23 04/28/23 [Amlodipine-Valsartan 10-160 mg] Benzonatate [Tessalon] 200 mg PO QID PRN #20 cap 04/28/23 Cholecalciferol [Vitamin D3] 25 mcg PO DAILY 04/28/23 04/28/23 Glipizide [Glipizide ER] 5 mg PO DAILY 04/28/23 04/28/23 Liraglutide [Victoza 2-Franklin] 0.6 mg SQ QPM 04/28/23 04/28/23 Sotalol [Betapace] 80 mg PO BID 04/28/23 04/28/23 Spironolactone [Aldactone] 25 mg PO DAILY 04/28/23 04/28/23 Vit A/Vit C/Vit E/Zinc/Copper 1 each PO DAILY 04/28/23 04/28/23 [Icaps Areds Softgel] Warfarin [Coumadin] 2.5 - 5 mg PO DAILY 04/28/23 04/28/23 - Allergies Allergies/Adverse Reactions: Allergies Allergy/AdvReac Type Severity Reaction Status Date / Time No Known Drug Allergies Allergy Verified 04/28/23 17:17 - Social History Does the pt smoke?: No Smoking Status: Never smoker Does the pt drink ETOH?: Yes Does the pt have substance abuse?: No - Immunizations Immunizations are current?: No - POLST Patient has POLST: No PD ED PE NORMAL - General General: Alert and oriented X 3, No acute distress, Well developed/nourished - HEENT HEENT: Atraumatic, Moist mucous membranes, Pharynx benign - Neck Neck: Supple, no meningeal sign - Cardiac Cardiac: RRR - Respiratory Respiratory: No respiratory distress, Clear bilaterally - Abdomen Abdomen: Soft, Non tender, Non distended - Derm Derm: Warm and dry - Extremities Extremities: No edema - Neuro Neuro: Normal speech Results - Vitals Vitals: Vital Signs - 24 hr 04/28/23 04/28/23 17:17 20:28 Temperature 36.8 C Heart Rate 79 70 Respiratory 18 16 Rate Blood Pressure 140/76 H O2 Saturation 96 99 Oxygen O2 Source Room air - Labs Labs: Laboratory Tests 04/28/23 19:15 Nasal Adenovirus (PCR) NOT DETECTED Nasal B. parapertussis DNA (PCR) NOT DETECTED Nasal Coronavir 229E PCR NOT DETECTED Nasal Coronavir HKU1 PCR NOT DETECTED Nasal Coronavir NL63 PCR NOT DETECTED Nasal Coronavir OC43 PCR NOT DETECTED Nasal Enterovir/Rhinovir PCR NOT DETECTED Nasal Influenza B PCR NOT DETECTED Nasal Influenza A PCR NOT DETECTED Nasal Parainfluen 1 PCR NOT DETECTED Nasal Parainfluen 2 PCR NOT DETECTED Nasal Parainfluen 3 PCR NOT DETECTED Nasal Parainfluen 4 PCR NOT DETECTED Nasal RSV (PCR) DETECTED A Nasal B.pertussis DNA PCR NOT DETECTED Nasal C.pneumoniae (PCR) NOT DETECTED Brandt Human Metapneumo PCR NOT DETECTED Nasal M.pneumoniae (PCR) NOT DETECTED Nasal SARS-CoV-2 (PCR) NOT DETECTED PD Medical Decision Making - ED course Complexity details: reviewed results, re-evaluated patient, d/w patient ED course: Patient with URI symptoms for 4 days. Stable vital signs. Lung sounds are clear. Never smoker. No history of asthma or COPD. Chest x-ray which I reviewed is negative for signs of consolidation or pneumonia. Respiratory swab was obtained and pending at the time of discharge but has resulted positive for RSV. Patient was already counseled on continued supportive care as his symptoms are likely viral in nature. He is also counseled on concerning symptoms to return for. Departure - Departure Disposition: 01 Home, Self Care Clinical Impression: Cough Condition: Stable Instructions: ED Viral Syndrome Prescriptions: Benzonatate [Tessalon] 200 mg PO QID PRN #20 cap PRN Reason: Cough Comments: Your x-ray does not show signs of pneumonia. Your respiratory panel is pending. This will check for COVID, influenza, RSV and a number of other common cold viruses. We will notify you if it is positive for COVID. Otherwise you can check the patient portal for your results. You should quarantine from others until you know your COVID result. Please continue with acetaminophen or ibuprofen as needed for fevers and body aches, plenty of fluids/hydration and rest. Return to the ER with any worsening symptoms such as difficulty breathing or vomiting. I have sent a prescription for cough medication to [facility] in [place]. Forms: PCP List Discharge Date/Time: 04/28/23 20:29
== END 2023-04-28 20:29 | disposition home or self-care (01) ==
LOC: ED 17:14
DX: R05.9 Cough, unspecified (principal); I10 Essential (primary) hypertension; E78.00 Pure hypercholesterolemia, unspecified; I48.91 Unspecified atrial fibrillation; E11.9 Type 2 diabetes mellitus without complications; Z11.52 Encounter for screening for COVID-19; Z79.01 Long term (current) use of anticoagulants; Z79.899 Other long term (current) drug therapy; Z79.84 Long term (current) use of oral hypoglycemic drugs
CPT/HCPCS: 71045; 87633; 99283; 99284; A9270

== ENCOUNTER 2023-05-04 09:12 | Emergency (ER) | payer MEDICARE, OTHER ==
[2023-05-04 09:27] VITALS: BP 143/82; O2SAT 99
[2023-05-04] MEDS ORDERED: DEXAMETHASONE 10 MG/ML VIAL PO STA (10:17)
[2023-05-04] MEDS ORDERED: CHERRY SYRUP 10 ML UDC PO ONE (10:17)
--- NOTE | 2023-05-04 10:20 | ED Physician Documentation ---
PD HPI URI - Stated complaint Stated Complaint: COUGH - Chief complaint Chief Complaint: Resp - History obtained from History obtained from: Patient - History of Present Illness Timing - onset: How many weeks ago (2) Timing duration: Weeks (2) Timing details: Gradual onset, Still present Associated symptoms: Nasal congestion, Rhinorrhea, Productive cough Contributing factors: Sick contact ( with great grand children.) Improves by: Rest Worsened by: Activity Similar symptoms before: Diagnosis (URI) Recently seen: Emergency Dept - Additional information Additional information: Nabil Beltran is a 77-year-old diabetic male with atrial fibrillation on Coumadin who is developed a cough after the . He was seen in the emergency department on 28 April and diagnosed with RSV. He has had persistence of his cough and production of phlegm. He has coughing paroxysms. He denies any fever. He is wondering if there is anything that we will stop this cough. Review of Systems Constitutional: denies: Fever, Chills, Myalgias Eyes: denies: Decreased vision Ears: denies: Loss of hearing, Ear pain Nose: reports: Rhinorrhea / runny nose, Congestion, Sinus pressure / pain Throat: denies: Sore throat Cardiac: denies: Chest pain / pressure, Palpitations Respiratory: reports: Cough GI: denies: Vomiting PD PAST MEDICAL HISTORY - Past Medical History Cardiovascular: Hypertension, High cholesterol, Atrial fibrillation Respiratory: None Neuro: None Endocrine/Autoimmune: Type 2 diabetes GI: GERD, Colon polyps :  HEENT: Chronic vision loss Psych: None Musculoskeletal: None Derm: Eczema - Past Surgical History Past Surgical History: Yes General: Colonoscopy Ortho: Other - Present Medications Home Medications: Ambulatory Orders Medication Instructions Recorded Confirmed Metformin HCl [Glumetza] 1,000 mg PO BID 11/04/12 04/28/23 Pantoprazole Sodium [Protonix] 40 mg PO QDAC 11/04/12 04/28/23 carvediloL [Coreg] 6.25 mg PO BID 11/04/12 04/28/23 Lovastatin 40 mg PO DAILY 01/07/14 04/28/23 Amlodipine Besylate/Valsartan 0.5 tab PO DAILY 04/28/23 04/28/23 [Amlodipine-Valsartan 10-160 mg] Benzonatate [Tessalon] 200 mg PO QID PRN #20 cap 04/28/23 Cholecalciferol [Vitamin D3] 25 mcg PO DAILY 04/28/23 04/28/23 Glipizide [Glipizide ER] 5 mg PO DAILY 04/28/23 04/28/23 Liraglutide [Victoza 2-Franklin] 0.6 mg SQ QPM 04/28/23 04/28/23 Sotalol [Betapace] 80 mg PO BID 04/28/23 04/28/23 Spironolactone [Aldactone] 25 mg PO DAILY 04/28/23 04/28/23 Vit A/Vit C/Vit E/Zinc/Copper 1 each PO DAILY 04/28/23 04/28/23 [Icaps Areds Softgel] Warfarin [Coumadin] 2.5 - 5 mg PO DAILY 04/28/23 04/28/23 Amox/Clav 875/125 [Augmentin] 1 each PO Q12H #20 tablet 05/04/23 Benzonatate [Tessalon] 100 mg PO TID PRN #30 cap 05/04/23 - Allergies Allergies/Adverse Reactions: Allergies Allergy/AdvReac Type Severity Reaction Status Date / Time No Known Drug Allergies Allergy Verified 04/28/23 17:17 - Social History Does the pt smoke?: No Smoking Status: Never smoker Does the pt drink ETOH?: Yes Does the pt have substance abuse?: No - Immunizations Immunizations are current?: No - POLST Patient has POLST: No PD ED PE NORMAL - Vitals Vital signs reviewed: Yes (Hypertensive) - General General: Alert and oriented X 3, No acute distress, Well developed/nourished - HEENT HEENT: Atraumatic, PERRL, EOMI, Other (There is cerumen impaction bilaterally this is worse on the left than the right I am able to remove the cerumen partially on the right side in order to view the TM which shows erythema to the bottom portion of the TM. 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, No motor deficit, No sensory deficit, Normal speech Eye Opening: Spontaneous Motor: Obeys Commands Verbal: Oriented GCS Score: 15 - Psych Psych: Normal mood, Normal affect Results - Vitals Vitals: Vital Signs - 24 hr 05/04/23 09:20 Temperature 36.5 C Heart Rate 72 Respiratory 16 Rate Blood Pressure 143/82 H O2 Saturation 99 Oxygen O2 Source Room air PD Medical Decision Making - ED course Complexity details: considered differential, d/w patient ED course: 77-year-old male returns to the emergency department with persistent cough productive of phlegm 6 days after diagnosis of RSV on viral swab. On examination he is found to have otitis on the right side. He does have some swelling to the right posterior pharynx and soft palate as well as the uvula. He is given dexamethasone for this reason. We will in addition administer a course of antibiotic and cough suppressant with expectation of resolution of symptoms. Departure - Departure Disposition: 01 Home, Self Care Clinical Impression: Otitis media Qualifiers: Otitis media type: suppurative Chronicity: acute Laterality: right Recurrence: non-recurrent Spontaneous tympanic membrane rupture: without spontaneous rupture Qualified Code(s): H66.001 - Acute suppurative otitis media without spontaneous rupture of ear drum, right ear Instructions: ED Otitis Media Acute Adult Follow-Up: Taiwo Wren MD [Primary Care Provider] - Prescriptions: Amox/Clav 875/125 [Augmentin] 1 each PO Q12H #20 tablet Benzonatate [Tessalon] 100 mg PO TID PRN #30 cap PRN Reason: Cough Comments: Nabil, today it looks like you have a secondary infection which we are going to treat with antibiotics. It looks like you had RSV when you were seen in the emergency department last week and our expectation is that this illness should be resolved by now. You are having coughing paroxysms and it looks like you have an infection in your right middle ear and this is likely the cause of the persistence of cough. I have E scribed some Augmentin (an antibiotic) and some benzoate (a cough suppressant) to the [facility] in [place]. Our expectations with treatment are rapid improvement over the next 2 to 3 days. Today we gave you a dose of dexamethasone for the swelling in the right side of your throat and this may increase your blood sugar. If you find that you are urinating more often than normal it is likely an elevated blood sugar and extra fluids are indicated.
== END 2023-05-04 10:42 | disposition home or self-care (01) ==
LOC: ED 09:12
DX: H66.001 Acute suppurative otitis media without spontaneous rupture of ear drum, right ear (principal); I48.91 Unspecified atrial fibrillation; Z79.01 Long term (current) use of anticoagulants; I10 Essential (primary) hypertension; E11.9 Type 2 diabetes mellitus without complications; Z79.84 Long term (current) use of oral hypoglycemic drugs
CPT/HCPCS: 99282; 99283; A9270

== ENCOUNTER 2023-07-24 08:46 | Outpatient (CLI) | payer MEDICARE, OTHER ==
[2023-07-24 12:30] LABS: BASOPHILS % (AUTO) 0.2 %; EOSINOPHILS # (AUTO) 0.1 10^3/uL (0.0-0.7); EOSINOPHILS % (AUTO) 1.8 %; HCT - HEMATOCRIT 41.6 % (42.0-52.0); HGB - HEMOGLOBIN 13.1 g/dL (14.0-18.0); LYMPHOCYTES # (AUTO) 1.3 10^3/uL (1.5-3.5); LYMPHOCYTES % (AUTO) 21.7 %; MEAN CORPUSCULAR HEMOGLOBIN 29.4 pg (27.0-31.0); MEAN CORPUSCULAR HGB CONC 31.5 g/dL (32.0-36.0); MEAN CORPUSCULAR VOLUME 93.3 fL (80.0-94.0); MEAN PLATELET VOLUME 10.2 fL (7.4-11.4); MONOCYTES # (AUTO) 0.5 10^3/uL (0.0-1.0); MONOCYTES % (AUTO) 7.9 %; NEUTROPHILS # (AUTO) 4.1 10^3/uL (1.5-6.6); NEUTROPHILS % (AUTO) 68.2 %; PLT - PLATELET COUNT 176 10^3/uL (130-450); RED BLOOD COUNT 4.46 10^6/uL (4.70-6.10); RED CELL DISTRIBUTION WIDTH 14.2 % (12.0-15.0)
[2023-07-24 13:01] LABS: ESTIMATED AVERAGE GLUCOSE 214 mg/dL (70-100); HEMOGLOBIN A1c% 9.1 % (4.27-6.07)
[2023-07-24 14:27] LABS: ALBUMIN 3.8 g/dL (3.2-5.5); ALBUMIN/GLOBULIN RATIO 1.3 (1.0-2.2); ALKALINE PHOSPHATASE 65 IU/L (42-121); ALT ALANINE AMINOTRANSFERASE 25 IU/L (10-60); AST ASPARTATE AMINOTRANSFERASE 18 IU/L (10-42); BILIRUBIN,TOTAL 0.5 mg/dL (0.2-1.0); BUN - BLOOD UREA NITROGEN 19 mg/dL (6-20); CALCIUM 9.3 mg/dL (8.5-10.3); CARBON DIOXIDE - CO2 29 mmol/L (21-32); CHLORIDE 108 mmol/L (101-111); CHOLESTEROL 140 mg/dL; CREATININE 1.3 mg/dL (0.6-1.3); GFR - MDRD 54 (>89); GLUCOSE 112 mg/dL (74-104); HDL CHOLESTEROL 46 mg/dL; LDL CHOLESTEROL,CALCULATED 71 mg/dL; LDL/HDL RATIO 1.5 (<3.6); POTASSIUM 4.8 mmol/L (3.5-4.5); SODIUM 140 mmol/L (135-145); TOTAL PROTEIN 6.7 g/dL (6.4-8.9); TRIGLYCERIDES 114 mg/dL (48-352); VLDL CHOLESTEROL 23 mg/dL
[2023-07-24 14:39] LABS: THYROID STIMULATING HORMONE 1.64 uIU/mL (0.34-5.60)
[2023-07-24 14:41] LABS: CREATININE,URINE 105.6 mg/dL
[2023-07-24 15:11] LABS: MICROALBUMIN,URINE < 0.7 mg/dL
== END 2023-07-24 08:47 | disposition home or self-care (01) ==
LOC: LAB 08:46
DX: I12.9 Hypertensive chronic kidney disease with stage 1 through stage 4 chronic kidney disease, or unspecified chronic kidney disease (principal); E11.22 Type 2 diabetes mellitus with diabetic chronic kidney disease; N18.31 Chronic kidney disease, stage 3a; Z51.81 Encounter for therapeutic drug level monitoring; Z79.899 Other long term (current) drug therapy; I42.9 Cardiomyopathy, unspecified; G47.33 Obstructive sleep apnea (adult) (pediatric); K21.9 Gastro-esophageal reflux disease without esophagitis; E78.5 Hyperlipidemia, unspecified; Z12.5 Encounter for screening for malignant neoplasm of prostate; E11.65 Type 2 diabetes mellitus with hyperglycemia; I48.0 Paroxysmal atrial fibrillation
CPT/HCPCS: 36415; 80053; 80061; 82043; 82570; 83036; 83735; 84443; 85025; G0103; 83721; 84153

== ENCOUNTER 2023-12-18 12:40 | Outpatient (CLI) | payer MEDICARE, OTHER ==
[2023-12-18 18:11] LABS: CALCIUM 9.3 mg/dL (8.5-10.3); CREATININE 1.9 mg/dL (0.6-1.3); POTASSIUM 4.8 mmol/L (3.5-4.5)
[2023-12-18 18:19] LABS: CREATININE,URINE 96.5 mg/dL
[2023-12-18 18:41] LABS: MICROALBUMIN,URINE < 0.7 mg/dL
[2023-12-18 22:45] LABS: ESTIMATED AVERAGE GLUCOSE 154 mg/dL (70-100)
== END 2023-12-18 12:41 | disposition home or self-care (01) ==
LOC: LAB.N 12:40
PROVIDERS: ATTEND Family Medicine
DX: E11.22 Type 2 diabetes mellitus with diabetic chronic kidney disease (principal); N18.31 Chronic kidney disease, stage 3a; E11.65 Type 2 diabetes mellitus with hyperglycemia
CPT/HCPCS: 36415; 80048; 82043; 82570; 83036